=== PATIENT | male | born 1970 | race Caucasian/White ===

== ENCOUNTER 2016-04-06 12:22 | Emergency (ER) | payer SELFPAY ==
[~2016-04-06] VITALS: Wt 88.0 kg
[2016-04-06] MEDS ORDERED: TRAM50TA2 PO (13:23)
[2016-04-06] MEDS ORDERED: CEPH-443 PO (13:23)
[2016-04-06] MEDS ORDERED: IBUP-1542 PO (13:23)
--- NOTE | 2016-04-06 13:26 | ERD ---
ER Documentation Chief Complaint Date/Time DATE: 04/06/16 TIME: 13:25 Chief Complaint left upper tooth pain x2days worse this morning HPI This 50-year-old male presents left upper dental pain worsening over the last 2 days. He has a history of a broken tooth in that area but is on blood thinners previously was not able to get dental treatment. His worsening pain over the last 2 days. He no longer takes blood thinners. Denies fevers, cough, short breath, chest pain, difficulty swallowing. ROS All systems reviewed and are negative except as per history of present illness. Medications Home Meds Active Scripts Acetaminophen with Codeine (Acetaminophen-Cod #3 Tablet) 1 Each Tablet, 1 TAB PO Q6H Y for PAIN, #12 TAB Prov:SOFIA KAPADIA MD 04/06/16 Tramadol HCl (Tramadol HCl) 50 Mg Tablet, 50 MG PO Q4 Y for PAIN, #18 TAB Prov:SOFIA KAPADIA MD 04/06/16 Cephalexin* (Keflex*) 500 Mg Capsule, 500 MG PO QID for 10 Days, CAP Prov:SOFIA KAPADIA MD 04/06/16 Discontinued Scripts Ibuprofen* (Motrin*) 600 Mg Tab, 600 MG PO Q6, #20 TAB Prov:SOFIA KAPADIA MD 04/06/16 Physical Exam Vitals Vital Signs Date Time Temp Pulse Resp B/P Pulse Ox O2 Delivery O2 Flow Rate FiO2 04/06/16 12:36 97.5 80 12 124/81 96 Physical Exam Const: [] Alert, not ill-appearing. Head: Atraumatic Eyes: Normal Conjunctiva ENT: Normal External Ears, Nose and Mouth. There is tenderness around the left posterior gums. Some slight swelling without erythema, facial induration and airways patent. Neck: Full range of motion..~ No meningismus. Resp: Clear to auscultation bilaterally Cardio: Regular rate and rhythm, no murmurs Abd: Soft, non tender, non distended. Normal bowel sounds Skin: No petechiae or rashes Back: No midline or flank tenderness Ext: No cyanosis, or edema Neur: Awake and alert Psych: Normal Mood and Affect Results 24 hrs Current Medications Medications (Trade) Dose Ordered Sig/Emile Route PRN Reason Start Time Stop Time Status Last Admin Dose Admin Ibuprofen (Motrin) 600 mg ONCE ONCE PO 04/06/16 13:30 04/06/16 13:31 DC Tramadol HCl (Ultram) 50 mg ONCE ONCE PO 04/06/16 13:30 04/06/16 13:31 DC 04/06/16 13:33 Procedures/MDM This patient presents with left upper dental pain in the area of the posterior molar in the gums. No evidence of facial cellulitis, airway compromise, sepsis. He will be treated with Keflex, tramadol and Tylenol 3 for severe pain and referral to local dentist.The patient was stable with no new complaints during the ER course. Clinically, there is no current evidence to suggest meningitis, sepsis, acute abdomen, pneumonia, acute coronary syndrome, pulmonary embolism, or any other emergent condition appearing to require further evaluation or hospitalization. The patient should certainly return for any new or worsening symptoms per the aftercare instructions. They should otherwise follow-up with her primary care doctor for reevaluation this week. Departure Diagnosis: Primary Impression: Toothache Condition: Stable Patient Instructions: Dental Pain Referrals: [facility] ([facility]) Additional Instructions: See dentist as advised. Recheck for fevers, shortness breath, difficulty swallowing. SOFIA KAPADIA MD Apr 06, 2016 13:26
[2016-04-06] MEDS ORDERED: traMADol 50 MG TAB PO ONE (13:30)
[2016-04-06] MEDS: IBUPROFEN 600 MG TAB PO ONE ×2 (13:32→13:39)
[2016-04-06] MEDS ORDERED: ACET1TAB40 PO (13:44)
== END 2016-04-06 14:12 | disposition home or self-care (01) ==
LOC: FTE 12:22
DX: K08.89 Other specified disorders of teeth and supporting structures (principal)
CPT/HCPCS: 99284